=== PATIENT | female | born 1935 | race Caucasian/White ===

== ENCOUNTER 2018-12-23 18:14 | Outpatient (CLI) | payer OTHER ==
[~2018-12-23 18:14] MED LIST: ATROVENT 00.5 MG/2.5 IH; IMODIUM ADVANCE1 TAB PO; NORVASC2.5 MG PO; PROTONIX40 MG PO; TESSALON PERLE100 M1 PO; TORADOL60 MG IM; TUSSIONEX PENNKI5 ML PO; URETRON D/S TAB1 TAB PO; VOLTAREM 50 MG PO
== END 2018-12-23 18:22 | disposition home or self-care (01) ==
LOC: RAD 18:14
DX: R05 Cough (principal)

== ENCOUNTER → 2019-02-04 | Emergency (ER) | payer OTHER | END | disposition left against medical advice (07) | LOC: ER 13:10 | DX: Z53.20 Procedure and treatment not carried out because of patient's decision for unspecified reasons (principal) ==

== ENCOUNTER 2019-04-05 09:53 | Emergency (ER) | payer OTHER ==
[~2019-04-05] VITALS: Ht 152.4 cm; Wt 62.6 kg
[~2019-04-05 09:53] MED LIST changes: +COZAAR25 MG
== END 2019-04-05 17:20 | disposition home or self-care (01) ==
LOC: ER 09:53
DX: J45.998 Other asthma (principal)

== ENCOUNTER 2019-12-08 12:22 | Outpatient (CLI) | payer OTHER | END 2019-12-08 12:29 | disposition home or self-care (01) | LOC: RAD 12:22 | PROVIDERS: ATTEND Ophthalmology | DX: R91.8 Other nonspecific abnormal finding of lung field (principal) ==

== ENCOUNTER 2020-07-05 12:43 | Outpatient (CLI) | payer OTHER | END 2020-07-05 12:54 | disposition HB | LOC: MRI 12:43 | DX: M48.07 Spinal stenosis, lumbosacral region (principal); S33.30XA Dislocation of unspecified parts of lumbar spine and pelvis, initial encounter; E11.9 Type 2 diabetes mellitus without complications; I10 Essential (primary) hypertension | CPT/HCPCS: 72148 ==

== ENCOUNTER 2021-10-16 08:14 | Emergency (ER) | payer OTHER ==
[~2021-10-16] VITALS: Ht 152.4 cm; Wt 65.8 kg
[2021-10-16] MEDS ORDERED: NEURONTIN300 MG PO (08:34)
[2021-10-16] MEDS ORDERED: NORVASC5 MG PO (08:34)
[2021-10-16] MEDS ORDERED: SYNTHROID75 MCG PO (08:34)
== END 2021-10-16 09:13 | disposition home or self-care (01) ==
LOC: ER 08:14
DX: F41.9 Anxiety disorder, unspecified (principal); I10 Essential (primary) hypertension

== ENCOUNTER 2023-07-03 08:46 | Outpatient (CLI) | payer OTHER ==
[~2023-07-03 08:46] MED LIST changes: +DICLOFENAC POTA50 MG PO; +NEURONTIN300 MG PO; +NORVASC5 MG PO; +SYNTHROID75 MCG PO; +VOLTAREN ARTHRI20 GM TOP
== END 2023-07-03 08:53 | disposition home or self-care (01) ==
LOC: SONOGRAMA 08:46
PROVIDERS: ATTEND Internal Medicine Endocrinology, Diabetes & Metabolism
DX: I11.0 Hypertensive heart disease with heart failure (principal); E11.9 Type 2 diabetes mellitus without complications; E78.2 Mixed hyperlipidemia; N36.9 Urethral disorder, unspecified; R31.9 Hematuria, unspecified

== ENCOUNTER 2024-06-20 05:42 | Emergency (ER) | payer OTHER ==
[~2024-06-20] VITALS: Ht 152.4 cm; Wt 61.7 kg
[~2024-06-20 05:42] MED LIST changes: +ATORVASTATIN CA10 MG PO; +NORVASC10 MG PO; +XOPENEX CO1.25 MG/0. IH
[2024-06-20] MEDS ORDERED: LEVALBUTEROL HCL 1.25 MG/3 ML SOLUTION IH ONE ×2 (08:45→09:36)
[2024-06-20] MEDS ORDERED: MONTELUKAST SODIUM 10 MG TABLET PO ONE (08:45)
[2024-06-20] MEDS ORDERED: CEFTRIAXONE SODIUM 1,000 MG VIAL IV ONE (08:45)
[2024-06-20] MEDS ORDERED: BENZONATATE 200 MG CAPSULE PO ONE (08:45)
[2024-06-20] MEDS ORDERED: METHYLPREDNISOLONE SOD SUCC 40 MG VIAL IV ONE (08:45)
[2024-06-20] MEDS ORDERED: IPRATROPIUM BROMIDE 0.5 MG/2.5 ML AMPUL.NEB IH ONE ×2 (08:45→09:36)
[2024-06-20] MEDS ORDERED: METHYLPREDNISOLONE SOD SUCC 40 MG VIAL ONE (09:07)
[2024-06-20] MEDS ORDERED: CEFTRIAXONE SODIUM 1,000 MG VIAL ONE (09:07)
[2024-06-20 09:24] LABS: HEMATOCRIT 41.9 % (36.0-45.00); HEMOGLOBIN 14.5 g/dL (12.0-15.00); MEAN CELL VOLUME 93.7 fL (80.00-100.00); MEAN CORPUSCULAR HEMOGLOBIN 32.3 pg (27.00-32.0); MEAN CORPUSCULAR HGB CONC 34.5 g/dl (32.0-36.0); PLATELET COUNT 192 K/uL (150-450); RED BLOOD COUNT 4.47 M/uL (4.00-6.00); RED CELL DISTRIBUTION WIDTH 14.5 % (11.5-14.5)
[2024-06-20 09:46] LABS: ALBUMIN 4.2 gm/dL (3.4-5.0); BILIRUBIN TOTAL 0.65 mg/dL (0.3-1.2); CALCIUM 9.4 mg/dL (8.5-10.1); CREATININE SERUM 1.04 mg/dL (0.55-1.02); GFR 50.01; GLOBULINA 3.5 G/DL (2.4-3.5); POTASSIUM 3.98 mEq/L (3.5-5.1); TOTAL PROTEIN 7.7 gm/dL (6.4-8.2)
[2024-06-20 09:53] LABS: INR 0.99; PARTIAL THROMBOPLASTIN TIME 25.1 SECONDS (22.0-34.0); PROTHROMBIN TIME 10.8 SECONDS (9.0-11.5)
[2024-06-20 10:01] LABS: ABG PH 7.394 (7.35-7.45); ABG PO2 72.3 mmHg (80-100); ABG pCO2 32.2 mmHg (35-45); BASE EXCESS -4.5 mmol/l; BICARBONATE 19.2 mmol/l (23-25); Tco2 20.2 mmol/l
[2024-06-20 10:07] LABS: allen test SATISFACTORY; o2 21 %; puncture site RADIAL RIGHT
[2024-06-20 13:29] LABS: PH,URINE 5.5 (5.0-8.0); URINE APPEARANCE Clear; URINE BILIRRUBIN Negative (NEGATIVE); URINE BLOOD Negative; URINE COLOR Yellow; URINE GLUCOSE Negative (NEGATIVE); URINE KETONE Trace (NEGATIVE); URINE LEUKOCYTE Negative; URINE NITRATE Negative; URINE UROBILINOGEN 0.2 E.U./dl
[2024-06-20 13:33] LABS: URINE BACTERIA 19.5 uL (0.0-1933); URINE EPITHELIAL CELLS 9.8 uL (0.0-38.8); URINE RBC 3.5 uL (0.0-20.8); URINE WBC 3.4 uL (0.0-23.2)
[2024-06-20 13:43] LABS: URINE CAST 0.29 uL (0.0-1.40); URINE PROTEIN 100 (NEGATIVE)
[2024-06-20] MEDS ORDERED: SINGULAIR10 MG PO (13:55)
[2024-06-20] MEDS ORDERED: PEPCID AC20 MG PO (13:55)
[2024-06-20] MEDS ORDERED: MEDROLPACK PO (13:55)
[2024-06-20] MEDS ORDERED: LEVALBUTER0.63 MG/3 IH (13:55)
[2024-06-20] MEDS ORDERED: BENZONATATE200 M1 PO (13:55)
[2024-06-20] MEDS ORDERED: AMOX1TAB5 PO (13:55)
== END 2024-06-20 14:24 | disposition home or self-care (01) ==
LOC: ER 05:42
PROVIDERS: General Practice
DX: R05.9 Cough, unspecified (principal); J40 Bronchitis, not specified as acute or chronic; R06.02 Shortness of breath; Z20.822 Contact with and (suspected) exposure to COVID-19; I10 Essential (primary) hypertension
CPT/HCPCS: 36415; 71046; 82803; 93005; 94640; 96365; 99283; J0696; J3490

== ENCOUNTER 2024-11-23 08:12 | Outpatient (CLI) | payer OTHER ==
[~2024-11-23 08:12] MED LIST changes: +AMOX1TAB5 PO; +BENZONATATE200 M1 PO; +LEVALBUTER0.63 MG/3 IH; +MEDROLPACK PO; +PEPCID AC20 MG PO; +SINGULAIR10 MG PO
== END 2024-11-23 08:22 | disposition home or self-care (01) ==
LOC: TOM 08:12
PROVIDERS: ATTEND Internal Medicine Pulmonary Disease
DX: R91.1 Solitary pulmonary nodule (principal)

== ENCOUNTER 2025-02-10 08:41 | Outpatient (CLI) | payer OTHER | END 2025-02-10 08:43 | disposition home or self-care (01) | LOC: SONOGRAMA 08:41 | PROVIDERS: ATTEND Internal Medicine Pulmonary Disease | DX: E04.1 Nontoxic single thyroid nodule (principal); E03.9 Hypothyroidism, unspecified ==